=== PATIENT | male | born 1985 | race Caucasian/White ===

== ENCOUNTER 2025-05-18 14:28 | Emergency (ER) | payer SELFPAY ==
[~2025-05-18] VITALS: Ht 167.6 cm; Wt 63.0 kg
[2025-05-18] MEDS ORDERED: ONDANSETRON HCL/PF 4 MG/2 ML VIAL ONE (14:41)
[2025-05-18] MEDS ORDERED: MORPHINE SULFATE INJ 4 MG/ML DISP.SYRIN ONE (14:41)
[2025-05-18] MEDS ORDERED: ASPIRIN 81 MG TAB.CHEW ONE (14:42)
[2025-05-18] MEDS: ONDANSETRON HCL/PF 4 MG/2 ML VIAL IV ONE (14:47)
[2025-05-18] MEDS: ASPIRIN 81 MG TAB.CHEW PO ONE (14:49)
[2025-05-18] MEDS: MORPHINE SULFATE INJ 2 MG/ML DISP.SYRIN IV ONE (14:50)
[2025-05-18 14:54] LABS: PLATELET COUNT (AUTO) 246 K/uL (150-450); RED BLOOD CELL COUNT(AUTO) 4.88 MIL/uL (4.5-6.0); RED CELL DISTRIBUTION WIDTH 12.8 % (11.5-15.0); WHITE BLOOD COUNT (AUTO) 5.4 K/uL (4.3-11.0)
[2025-05-18 15:08] LABS: ASPARTATE AMINOTRANSFERASE 28 U/L (15-37); CALCIUM, SERUM 9.3 mg/dL (8.5-10.1); CREATININE 1.1 mg/dL (0.6-1.3); SODIUM SERUM 137 mmol/L (136-145); TOTAL PROTEIN, SERUM 7.7 g/dL (6.4-8.2); UREA NITROGEN, BLOOD 13 mg/dL (7-18)
[2025-05-18] MEDS ORDERED: MIDAZOLAM HCL 2 MG/2ML VIAL ONE (15:22)
[2025-05-18] MEDS: MIDAZOLAM HCL 2 MG/2ML VIAL IV ONE (15:25)
[2025-05-18] MEDS: POTASSIUM CHLORIDE 20 MEQ TAB.PRT.SR PO ONE (15:30)
[2025-05-18] MEDS ORDERED: POTASSIUM CHLORIDE 20 MEQ TAB.PRT.SR PO ONE (16:49)
[2025-05-18 17:20] LABS: AMPHETAMINE, URINE NEGATIVE (NEGATIVE); BARBITURATE, URINE NEGATIVE (NEGATIVE); BENZODIAZEPINE, URINE NEGATIVE (NEGATIVE); COCCAINE, URINE NEGATIVE (NEGATIVE)
[2025-05-18 17:23] LABS: CANNABINOID, URINE POSITIVE (NEGATIVE); OPIATE, URINE POSITIVE (NEGATIVE)
[2025-05-18] MEDS ORDERED: DEXT10TA18 PO (17:29)
[2025-05-18 17:40] LABS: ALCOHOL, BLOOD < 3 mg/dL (0-10)
[2025-05-18] MEDS ORDERED: HYDR25CA PO (19:03)
[2025-05-18 19:19] VITALS: BP 118/66; TEMP 98; O2SAT 97
== END 2025-05-18 19:20 | disposition home or self-care (01) ==
LOC: ER 14:44
DX: R07.9 Chest pain, unspecified (principal); R06.02 Shortness of breath; R00.2 Palpitations; E87.6 Hypokalemia; F41.9 Anxiety disorder, unspecified; F90.9 Attention-deficit hyperactivity disorder, unspecified type; Z79.899 Other long term (current) drug therapy
CPT/HCPCS: 99285; 96374; 96375; 93005 ×2; 71045; 85025; 80048; 80076; 83735; 85378; 84132; 36415; 84484 ×2; 80320; 80307; J2270; J2405; J2250; G0480